=== PATIENT | male | born 2000 | race Caucasian/White ===

== ENCOUNTER 2022-03-12 22:17 | Emergency (ER) | payer BC, SELFPAY ==
[2022-03-12 22:40] VITALS: BP 146/86; RESP 18; TEMP 36.8; O2SAT 99; BMI 19.2
--- NOTE | 2022-03-12 22:44 | ED.ALLEREA ---
HPI - Allergic Reaction General Chief complaint: Skin/Abscess/Foreign Body <HEATHER Arriaga - Last Filed: 03/12/22 22:48> Stated complaint: carmen lower leg swelling ,red painful <HEATHER Arriaga - Last Filed: 03/12/22 22:48> Time Seen by Provider: 03/12/22 23:41 <HEATHER Arriaga - Last Filed: 03/12/22 22:48> Source: patient <Alf Juarez MD - Last Filed: 03/13/22 01:24> Mode of arrival: ambulatory <Alf Juarez MD - Last Filed: 03/13/22 01:24> Limitations: no limitations <Alf Juarez MD - Last Filed: 03/13/22 01:24> History of Present Illness HPI narrative: Precluding of rash both lower extremities above the ankle area for last 1 week started with small red spot with itching now has some blisters no history of similar rash in the past no rash anywhere else patient is on finasteride for alopecia for last 2 months <Alf Juarez MD - Last Filed: 03/13/22 01:24> Related Data Home medications: Previous Rx's Medication Instructions Recorded cephalexin 500 mg capsule 500 mg PO QID 10 days #40 caps 03/13/22 hydroxyzine HCl 50 mg tablet 50 mg PO Q6-8H PRN itching #30 tabs 03/13/22 prednisone 10 mg tablet 10 mg PO DIRECTED #60 tabs 03/13/22 <HEATHER Arriaga - Last Filed: 03/12/22 22:48> Allergies/adverse reactions: Allergies Allergy/AdvReac Type Severity Reaction Status Date / Time No Known Allergies Allergy Unverified 11/26/19 17:04 <HEATHER Arriaga - Last Filed: 03/12/22 22:48> Review of Systems Review of Systems: Yes all other systems are reviewed and are negative <Alf Juarez MD - Last Filed: 03/13/22 01:24> PMFSH Social History Social History: Social History Advance Directives: No <HEATHER Arriaga - Last Filed: 03/12/22 22:48> Physical Exam ED Vital Signs: Vital Signs - 24 hr 03/12/22 22:40 Temperature 98.2 F Respiratory Rate 18 Blood Pressure 146/86 H Pulse Oximetry 99 Oxygen Delivery Method Room Air BMI result Body Mass Index 19.2 <HEATHER Arriaga - Last Filed: 03/12/22 22:48> Vital Signs - 24 hr 03/12/22 22:40 Temperature 98.2 F Respiratory Rate 18 Blood Pressure 146/86 H Pulse Oximetry 99 Oxygen Delivery Method Room Air BMI result Body Mass Index 19.2 <Alf Juarez MD - Last Filed: 03/13/22 01:24> Appearance: Alert. Oriented X3. No acute distress. ENT: Pharynx normal. Oral Mucosa moist Neck: Normal inspection. Neck supple. CVS: Normal heart rate and rhythm. Pulses normal. Respiratory: No respiratory distress. Equal air entry bilateral, no wheezing/rales/rhonchi Abdomen: Soft and nontender. Bowel sounds are present, Skin: Skin warm and dry. Normal skin color. Normal skin turgor. Eczematous rash print vesicles left lower extremity and without vesicles on the right lower extremity is picture as at rest Extremities: No lower extremity edema. No calf tenderness Neuro: Oriented X 3. 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 He is currently in college. Not currently working. Taking Benadryl and hydrocortisone although no symptomatic relief. No recent hiking or animal bites that he is aware of. No other people in the household have a similar rash. He denies any fevers or any other symptoms complaints or concerns at this time. On exam patient is noted to have a erythematous vesicular rash to bilateral lower extremities with moderate surrounding erythema and tenderness to palpation. Plan: Labs, blood cultures ordered at this time. Patient will be sent to the ER for further evaluation treatment. <HEATHER Arriaga - Last Filed: 03/12/22 22:48> Medications Administered Discontinued Medications Generic Name Dose Route Start Last Admin Trade Name Freq PRN Reason Stop Dose Admin Cephalexin HCl 500 mg 03/13/22 00:00 03/13/22 00:11 Cephalexin 500 Mg Capsule PO 03/13/22 00:01 500 mg ONCE ONE Administration Dexamethasone 10 mg 03/12/22 23:55 03/13/22 00:11 Dexamethasone 2 Mg Tablet PO 03/12/22 23:56 10 mg ONCE ONE Administration Diphenhydramine HCl 50 mg 03/12/22 23:55 03/13/22 00:11 Diphenhydramine Hcl 25 Mg Capsule PO 03/12/22 23:56 50 mg ONCE ONE Administration <HEATHER Arriaga - Last Filed: 03/12/22 22:48> Medications Administered Discontinued Medications Generic Name Dose Route Start Last Admin Trade Name Yoan PRN Reason Stop Dose Admin Cephalexin HCl 500 mg 03/13/22 00:00 03/13/22 00:11 Cephalexin 500 Mg Capsule PO 03/13/22 00:01 500 mg ONCE ONE Administration Dexamethasone 10 mg 03/12/22 23:55 03/13/22 00:11 Dexamethasone 2 Mg Tablet PO 03/12/22 23:56 10 mg ONCE ONE Administration Diphenhydramine HCl 50 mg 03/12/22 23:55 03/13/22 00:11 Diphenhydramine Hcl 25 Mg Capsule PO 03/12/22 23:56 50 mg ONCE ONE Administration <Alf Juarez MD - Last Filed: 03/13/22 01:24> Medical Decision Making Medical Decision Making [facility] Narrative: Patient rash clinically contact dermatitis etiology not very clear a rare side effect of finasteride also advised patient to start finasteride for now prednisone as prescribed and Atarax and follow-up with PCP labs showed elevated easinophil count <Alf Juarez MD - Last Filed: 03/13/22 01:24> Lab Data [facility] Lab Attestation statement: I reviewed the patient's lab results. <Alf Juarez MD - Last Filed: 03/13/22 01:24> Result Diagrams: : 03/12/22 23:32 03/12/22 23:32 <HEATHER Arriaga - Last Filed: 03/12/22 22:48> Labs: Lab Results 03/12/22 03/12/22 Range/Units 23:32 23:32 WBC 8.3 (4.8-10.8) X10*3/uL RBC 5.80 (4.60-5.80) X10*6/uL Hgb 17.4 (14.0-18.0) g/dl Hct 50.4 (42.0-52.0) % MCV 86.9 (80.0-98.0) fL MCH 30.0 (27.0-33.0) pg MCHC 34.5 (31.0-36.0) g/dl RDW 12.2 (11.0-16.0) % Plt Count 212 (160-400) X10*3/uL MPV 10.2 (9.4-12.4) fL Immature Gran % (Auto) 0.2 (0.0-0.4) % Neut % (Auto) 47.2 (45-73) % Lymph % (Auto) 28.9 (20-40) % Brantley % (Auto) 7.8 (2-11) % Eos % (Auto) 15.3 H (0-4) % Baso % (Auto) 0.6 (0-2) % Lymph # (Auto) 2.4 (1.2-4.9) X10*3/uL Brantley # (Auto) 0.7 (0.1-1.2) X10*3/uL Eos # (Auto) 1.3 H (0.0-0.4) X10*3/uL Baso # (Auto) 0.1 (0.0-0.2) X10*3/uL Abs Immat Gran (auto) 0.02 (0.00-0.03) X10*3/uL Absolute Neuts (auto) 3.9 (2.0-8.3) x10*3/uL Absolute Nucleated RBC 0.000 (0.0-0.012) X10*3/uL Nucleated RBC % (auto) 0.0 (0.0-0.2) /100WBC Sodium 141 (135-145) mmol/L Potassium 4.0 (3.3-5.1) mmol/L Chloride 107 (96-108) mmol/L Carbon Dioxide 24 (22-29) mmol/L Anion Gap 14 (12-20) BUN 16 (9-16) mg/dL Creatinine 1.26 (0.5-1.4) mg/dL Estim Creat Clear Calc 90.7 Estimated GFR > 60 Random Glucose 114 (60-115) mg/dL Calcium 9.4 (8.4-10.2) mg/dL Magnesium 2.2 (1.6-2.6) mg/dL Total Bilirubin 1.3 H (0.0-1.0) mg/dL AST 17 (5-37) U/L ALT 25 (0-40) U/L Alkaline Phosphatase 63 (39-117) U/L Total Protein 7.4 (6.5-8.0) g/dL Albumin 4.6 (3.5-5.0) g/dL <HEATHER Arriaga - Last Filed: 03/12/22 22:48> Lab Results 03/12/22 03/12/22 Range/Units 23:32 23:32 WBC 8.3 (4.8-10.8) X10*3/uL RBC 5.80 (4.60-5.80) X10*6/uL Hgb 17.4 (14.0-18.0) g/dl Hct 50.4 (42.0-52.0) % MCV 86.9 (80.0-98.0) fL MCH 30.0 (27.0-33.0) pg MCHC 34.5 (31.0-36.0) g/dl RDW 12.2 (11.0-16.0) % Plt Count 212 (160-400) X10*3/uL MPV 10.2 (9.4-12.4) fL Immature Gran % (Auto) 0.2 (0.0-0.4) % Neut % (Auto) 47.2 (45-73) % Lymph % (Auto) 28.9 (20-40) % Brantley % (Auto) 7.8 (2-11) % Eos % (Auto) 15.3 H (0-4) % Baso % (Auto) 0.6 (0-2) % Lymph # (Auto) 2.4 (1.2-4.9) X10*3/uL Brantley # (Auto) 0.7 (0.1-1.2) X10*3/uL Eos # (Auto) 1.3 H (0.0-0.4) X10*3/uL Baso # (Auto) 0.1 (0.0-0.2) X10*3/uL Abs Immat Gran (auto) 0.02 (0.00-0.03) X10*3/uL Absolute Neuts (auto) 3.9 (2.0-8.3) x10*3/uL Absolute Nucleated RBC 0.000 (0.0-0.012) X10*3/uL Nucleated RBC % (auto) 0.0 (0.0-0.2) /100WBC Sodium 141 (135-145) mmol/L Potassium 4.0 (3.3-5.1) mmol/L Chloride 107 (96-108) mmol/L Carbon Dioxide 24 (22-29) mmol/L Anion Gap 14 (12-20) BUN 16 (9-16) mg/dL Creatinine 1.26 (0.5-1.4) mg/dL Estim Creat Clear Calc 90.7 Estimated GFR > 60 Random Glucose 114 (60-115) mg/dL Calcium 9.4 (8.4-10.2) mg/dL Magnesium 2.2 (1.6-2.6) mg/dL Total Bilirubin 1.3 H (0.0-1.0) mg/dL AST 17 (5-37) U/L ALT 25 (0-40) U/L Alkaline Phosphatase 63 (39-117) U/L Total Protein 7.4 (6.5-8.0) g/dL Albumin 4.6 (3.5-5.0) g/dL <Alf Juraez MD - Last Filed: 03/13/22 01:24> Discharge Plan Discharge Clinical Impression: Contact dermatitis <HEATHER Arriaga - Last Filed: 03/12/22 22:48> Patient Disposition: Home, Self-Care <HEATHER Arriaga - Last Filed: 03/12/22 22:48> Instructions: Contact Dermatitis (ED), Cellulitis (ED) <HEATHER Arriaga - Last Filed: 03/12/22 22:48> Additional Instructions: Hold finasteride for now not sure if medicine causing the rash clinically looks like dermatitis Take prednisone as prescribed, antibiotic to prevent infection Restart finasteride after rash improves <HEATHER Arriaga - Last Filed: 03/12/22 22:48> Prescriptions: New prednisone 10 mg tablet 10 mg PO DIRECTED Qty: 60 0RF Rx Instructions: Take 50 mg a day for 4 days then 40 mg a day for 4 days then 30 mg a day for 4 days then 20 mg for 4 days then 10 mg for 4 days and stop hydroxyzine HCl 50 mg tablet 50 mg PO Q6-8H PRN (Reason: itching) Qty: 30 0RF cephalexin 500 mg capsule 500 mg PO QID 10 Days Qty: 40 0RF <HEATHER Arriaga - Last Filed: 03/12/22 22:48> Interventions: ED Discharge Assessment Last Done: 03/13/22 00:16 <HEATHER Arriaga - Last Filed: 03/12/22 22:48> Discharge Date/Time: 03/13/22 00:20 <HEATHER Arriaga - Last Filed: 03/12/22 22:48>
--- OUTSIDE RECORDS SUMMARY | 2022-03-12 23:07 | XMS_ITS | Continuity of Care Document ---
:2000 Author Organization [facility] Address [address] [address]- Care Team Providers Name Role Phone Keon Hendricks MD Primary Care Physician En[place] [facility] Date(s): 11/17/19 - 11/24/19 [facility] [address] [place] [address] [address] [place] [address]- [facility] Attending Physician: Kavon Vance MD Referring Physician: Keon Hendricks MD Allergies, Adverse Reactions, Alerts No Known Medication Allergies Medications betamethasone topical valerate 0.1% ointment 1 application, Topically, 2 times a day, # 45 Gm, 0 Refills, Maintenance, 11/17/19 15:24:00 EDT, Ointment, [facility], 1 application Topically 2 times a day, 190.5, cm, 11/17/19 15:08:00 EDT, Height, 70, kg, 11/17/19 14:42:00 EDT, Dry We... Start Date: 11/17/19 Status: Ordered Vital Signs Most recent to oldest [Reference Range]: 1 Height 190.50 cm (11/17/19 2:42 PM) Weight 70.0 kg (11/17/19 2:42 PM) Body Mass Index [18.5-24.99] 19.29 (11/17/19 2:42 PM) Dry Weight 70.0 kg (11/17/19 2:42 PM)
--- OUTSIDE RECORDS SUMMARY | 2022-03-12 23:07 | XMS_ITS | Continuity of Care Document ---
:2002 Author Organization [facility] Address [address] [place] [id number]- Care Team Providers Name Role Phone Eladio NOVOA, Keon Rios Primary Care Physician Encounter [facility] [place] Date(s): 12/23/19 - 12/30/19 [facility] [address] [place] [id number]- [facility] Attending Physician: Pinky NOVOA, Kavon Fenton Allergies, Adverse Reactions, Alerts No Known Medication [...] Most recent to oldest [Reference Range]: 1 Weight 69.9 kg (12/23/19 4:16 PM) Dry Weight 69.9 kg (12/23/19 4:16 PM)
--- OUTSIDE RECORDS SUMMARY | 2022-03-12 23:07 | XMS_ITS | Continuity of Care Document ---
:2002 Author Organization [facility] Address [address] [place] [id number]- Care Team Providers Name Role Phone Eladio NOVOA, Keon Rios Primary Care Physician Encounter [facility] Date(s): 02/09/20 - 03/10/20 [facility] [address] [place] [id number] Attending Physician: Jacqueline Wilkins Admitting Physician: Jacqueline Wilkins Referring Physician: trJacqueline Allergies, Adverse Reactions, Alerts No Known Medication Allergies
--- OUTSIDE RECORDS SUMMARY | 2022-03-12 23:07 | XMS_ITS | Continuity of Care Document ---
:2002 Author Organization [facility] Address [address] [place] [address] [address] [place] [address]- Care Team Providers Name Role Phone Keon Hendricks MD Primary Care Physician Encounter [facility] Date(s): 02/09/20 - 02/16/20 [facility] [address] [place] [address] [address] [place], [place] [address] Attending Physician: Kavon Vance MD Referring Physician: Keon Hendricks MD Allergies, Adverse Reactions, Alerts No Known Medication Allergies Medications No Known Medications Procedures Procedure Date Related Diagnosis Body Site Status Circumcision 01/20/20 Completed Vital Signs Most recent to oldest [Reference Range]: 1 Weight 67.5 kg (02/09/20 4:28 PM) Dry Weight 67.5 kg (02/09/20 4:28 PM) Weight Obtained Via Standing scale (02/09/20 4:28 PM) Dry Weight Obtained Via Pediatric scale (02/09/20 4:28 PM)
[2022-03-12 23:39] LABS: MANUAL DIFF FLAG NO
[2022-03-12 23:40] LABS: Basophils Absolute Auto 0.1 X10*3/uL (0.0-0.2); Basophils Percent Auto 0.6 % (0-2); Eosinophils Absolute Auto 1.3 X10*3/uL (0.0-0.4); Eosinophils Percent Auto 15.3 % (0-4); Hematocrit 50.4 % (42.0-52.0); Hemoglobin 17.4 g/dl (14.0-18.0); Imm Gran Abs Auto 0.02 X10*3/uL (0.00-0.03); Imm Gran Pct Auto 0.2 % (0.0-0.4); Lymphocytes Absolute Auto 2.4 X10*3/uL (1.2-4.9); Lymphocytes Percent Auto 28.9 % (20-40); Mean Corpuscular HGB Conc 34.5 g/dl (31.0-36.0); Mean Corpuscular Volume 86.9 fL (80.0-98.0); Mean Platelet Volume 10.2 fL (9.4-12.4); Monocytes Absolute Auto 0.7 X10*3/uL (0.1-1.2); Monocytes Percent Auto 7.8 % (2-11); Neutrophils Absolute Auto 3.9 x10*3/uL (2.0-8.3); Neutrophils Percent Auto 47.2 % (45-73); Platelet Count 212 X10*3/uL (160-400); Red Cell Distribution Width 12.2 % (11.0-16.0); White Blood Count 8.3 X10*3/uL (4.8-10.8)
[2022-03-12 23:57] LABS: Alanine Aminotransferase 25 U/L (0-40); Albumin Level 4.6 g/dL (3.5-5.0); Alkaline Phosphatase 63 U/L (39-117); Anion Gap 14 (12-20); Aspartate Amino Transferase 17 U/L (5-37); Bilirubin Total 1.3 mg/dL (0.0-1.0); Blood Urea Nitrogen 16 mg/dL (9-16); Calcium 9.4 mg/dL (8.4-10.2); Carbon Dioxide 24 mmol/L (22-29); Chloride 107 mmol/L (96-108); Creatinine Clr Calc Pharmacy 90.7; Estimated Glomerular Filt Rate > 60; Glucose Random 114 mg/dL (60-115); Magnesium 2.2 mg/dL (1.6-2.6); Sodium 141 mmol/L (135-145); Total Protein 7.4 g/dL (6.5-8.0)
[2022-03-13] MEDS: diphenhydrAMINE HCL 25 MG CAPSULE 50 MG PO (00:11)
[2022-03-13] MEDS: dexAMETHasone 2 MG TABLET 10 MG PO (00:11)
[2022-03-13] MEDS: cephALEXin 500 MG CAPSULE PO (00:11)
== END 2022-03-13 00:20 | disposition home or self-care (01) ==
PROVIDERS: Physician Assistant Medical; Emergency Provider Internal Medicine; PCP Pediatrics
DX: L25.9 Unspecified contact dermatitis, unspecified cause (principal)
CPT/HCPCS: 36415; 80053; 83735; 85025; 87040; 99282; 99283; J8540